=== PATIENT | female | born 1990 | race Two or more races ===

== ENCOUNTER 2023-09-08 14:57 | Emergency (ER) | payer OTHER ==
[2023-09-08 15:17] VITALS: BP 124/69; PULSE 95; RESP 18; TEMP 98.4; BMI 35.7
[2023-09-08] MEDS ORDERED: CEPHALEXIN MONOHYDRATE 500 MG CAPSULE (UD) PO ONE (16:50)
[2023-09-08] MEDS ORDERED: ACETAMINOPHEN 500 MG TABLET (FP) PO ONE (16:51)
[2023-09-08] MEDS ORDERED: CEPHALEXIN MONOHYDRATE 500 MG CAPSULE (UD) ONE (17:14)
[2023-09-08] MEDS ORDERED: ACETAMINOPHEN 500 MG TABLET (FP) ONE (17:14)
== END 2023-09-08 18:49 | disposition home or self-care (01) ==
LOC: JER 14:57
DX: O26.893 Other specified pregnancy related conditions, third trimester (principal); R22.0 Localized swelling, mass and lump, head; O99.713 Diseases of the skin and subcutaneous tissue complicating pregnancy, third trimester; K13.0 Diseases of lips; Z3A.29 29 weeks gestation of pregnancy
CPT/HCPCS: 99283-25